=== PATIENT | female | born 1980 | race Caucasian/White ===

== ENCOUNTER 2019-12-03 17:08 | Emergency (ER) | payer OTHER, SELFPAY ==
--- NOTE | ~2019-12-03 | XR_ITS ---
EXAMINATION: XR lumbar spine 2-3V DATE: 12/03/2019 17:41 INDICATION: Low back and tailbone pain post fall from horse TECHNIQUE: Anteroposterior and lateral views of the lumbar spine, and cone-down lateral view of the l umbosacral junction were obtained. COMPARISON: None. FINDINGS: Straightening of the normal lumbar lordosis. No spondylolisthesis. Vertebral body heights are normal. Small Schmorl's node along the superior endplates of L2 and L3. Mild disc height loss at L1-L2 throu gh L4-L5. L5 is partially sacralized on the left. Sacral arches are intact. No fractures identified. Sacroiliac joints are normal. IMPRESSION: 1. Mild lumbar spondylosis. No acute osseous abnormality. Reviewed, dictated and finalized at location A.
--- NOTE | ~2019-12-03 | CT_ITS ---
EXAMINATION: CT brain wo con DATE: 12/03/2019 17:31 INDICATION: Head injury post fall from horse with broken helmet. TECHNIQUE: Computed tomography (CT) of the head was performed without intravenous contrast. Sagittal and coronal reconstructions were performed. The mA was adjusted according to patient size. Iterative reconstruction technique was employed. The dose-length product was 605.33 mGy-cm. COMPARISON: None FINDINGS: No fracture. No acute intracranial hemorrhage, acute infarction or abnormal extra axial fluid collect ion. Ventricles are normal and symmetric. No mass/mass effect. The orbits, paranasal sinuses and mast oid air cells are normal. IMPRESSION: 1. Normal head CT. No fracture or acute intracranial process. Reviewed, dictated and finalized at location A.
[2019-12-03 17:10] VITALS: BP 168/92; PULSE 106; RESP 20; TEMP 36.9; O2SAT 100
[2019-12-03] MEDS: ACETAMINOPHEN 325 MG TABLET 650 MG PO (17:26)
--- NOTE | 2019-12-03 18:10 | ED.GENADULT ---
HPI - General Adult General Chief complaint: Head Injury <TAD Caban Last Filed: 12/03/19 18:13> Stated complaint: fell from a horse <TAD Caban Last Filed: 12/03/19 18:13> Time Seen by Provider: 12/03/19 17:16 <TAD Caban Last Filed: 12/03/19 18:13> Source: patient <TAD Caban Last Filed: 12/03/19 18:13> Mode of arrival: ambulatory <TAD Caban Last Filed: 12/03/19 18:13> Limitations: no limitations <TAD Caban Last Filed: 12/03/19 18:13> History of Present Illness HPI narrative: Patient is a 39-year-old female who presents after being thrown off a horse landing on her head noting that she cracked the helmet that she was wearing denies loss of consciousness notes that she has had some brief confusion with headache lightheadedness dizziness and nausea patient denies neck pain but notes that she also is experiencing some low back pain patient on arrival per private vehicle is in the room in no distress patient has not taken anything for her symptoms <TAD Caban Last Filed: 12/03/19 18:13> Related Data Home medications: Home Medications Medication Instructions Recorded Confirmed No Home Medications 12/03/19 12/03/19 <TAD Caban Last Filed: 12/03/19 18:13> Allergies/adverse reactions: Allergies Allergy/AdvReac Type Severity Reaction Status Date / Time doxycycline Allergy Unknown Unknown Verified 12/03/19 17:18 Iodinated Contrast Media Allergy Unknown Unknown Verified 12/03/19 17:18 Contrast Media Allergy Unknown Unknown Uncoded 12/03/19 17:18 <TAD Caban Last Filed: 12/03/19 18:13> Review of Systems Review of Systems: All systems reviewed & are unremarkable except as noted in HPI and below <TAD Caban Last Filed: 12/03/19 18:13> PMFSH Family History Family History: Family History (Updated 11/02/14 @ 09:52 by DOCTOR UNKNOWN) Other Family history of cardiovascular disease Family history of mental disorder Family history of osteoporosis <Puneet Easton PA-C - Last Filed: 12/03/19 18:13> Social History Social History: Social History Smoking status: Never smoker Alcohol intake: current <Puneet Easton PA-C - Last Filed: 12/03/19 18:13> Exam Narrative: Exam Narrative: GENERAL: Well-appearing, well-nourished, and in no acute distress. HEAD: Normocephalic, atraumatic. EYES: PERRLA and EOMI. ENT: Nares clear, no rhinorrhea or epistaxis. Mucous membranes moist. Oropharynx without tonsillar hypertrophy exudate or other lesions. NECK: Supple. No adenopathy or masses. CHEST: Clear to auscultation. No respiratory distress. No wheezes rales or rhonchi HEART: Regular rate and rhythm. No murmur heard. EXTREMITIES: Normal range of motion. No edema. No cervical thoracic tenderness. Patient notes lumbar tenderness to palpation midline paraspinal no deformities noted SKIN: Warm, dry, no rash. NEURO: No focal deficits. Alert and oriented x3. Cranial nerves II through XII grossly intact. Normal speech and gait PSYCH: Normal mood and affect. 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 Mujica is here because she fell off of her horse today. The back of her helmet broke. And she hurt her low back. She also fell 4 days ago with last injury. 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 She has some confusion with the head injury, and some right sciatica from the low back pain. She understands to have quiet activity for a couple days, and to postpone getting back
[2019-12-03 18:31] VITALS: TEMP 36.9
== END 2019-12-03 18:32 | disposition home or self-care (01) ==
PROVIDERS: Emergency Provider Emergency Medicine
DX: S09.90XA Unspecified injury of head, initial encounter (principal); S39.92XA Unspecified injury of lower back, initial encounter; V80.010A Animal-rider injured by fall from or being thrown from horse in noncollision accident, initial encounter; M47.816 Spondylosis without myelopathy or radiculopathy, lumbar region
CPT/HCPCS: 70450; 72100; 99284; A9270

== ENCOUNTER 2021-07-02 15:25 | Emergency (ER) | payer SELFPAY ==
--- NOTE | ~2021-07-02 | XR_ITS ---
EXAMINATION: XR knee RT 3V DATE: 07/02/2021 16:31 INDICATION: Right knee injury and pain. TECHNIQUE: 5 views of right knee were obtained. COMPARISON: None. FINDINGS: Bone alignment is normal. No fracture. There is mild tricompartmental osteoarthritis. There is a large knee joint effusion. There is a 6 mm loose body in the anterior intercondylar notch. IMPRESSION: 1. Mild right knee osteoarthritis. 2. Large knee joint effusion with loose body. Reviewed, dictated and finalized at location A. 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
[2021-07-02 16:00] VITALS: BP 172/112; PULSE 95; RESP 18; TEMP 36.4; O2SAT 100
--- NOTE | 2021-07-02 20:10 | ED.GENADULT ---
HPI - General Adult General Chief complaint: Extremity Injury, Lower Stated complaint: right knee injury Time Seen by Provider: 07/02/21 19:35 Source: patient Mode of arrival: ambulatory Limitations: no limitations History of Present Illness HPI narrative: Patient is a 40-year-old female with chief complaint of severe pain and swelling to the right knee that began after her dog ran into the medial aspect of her knee causing it to twist. Patient reports that she feels as if a pop out of place and popped back. She reports that it is extremely painful to bear weight. She reports the pain is to the entire anterior aspect of the knee, but feels deep and not superficial. Patient denies any other injuries Related Data Allergies Allergy/AdvReac Type Severity Reaction Status Date / Time doxycycline Allergy Unknown Unknown Verified 12/03/19 17:18 Iodinated Contrast Media Allergy Unknown Unknown Verified 12/03/19 17:18 Contrast Media Allergy Unknown Unknown Uncoded 12/03/19 17:18 Review of Systems Review of Systems: CONSTITUTIONAL: Denies fever, chills, or sweats. EYES: Denies visual changes, redness, or discharge. ENT: Denies rhinorrhea, congestion, sore throat, or otalgia. CARDIOVASCULAR: Denies chest pain, palpitations, or edema. RESPIRATORY: Denies cough or dyspnea. GASTROINTESTINAL: Denies abdominal pain, nausea, vomiting, or diarrhea. GENITOURINARY: Denies dysuria or hematuria. SKIN: Denies rash or itching. MUSCULOSKELETAL: Reports right knee pain denies back pain, joint pain, or myalgia. NEUROLOGIC: Denies headache, numbness, dizziness, or weakness. PSYCHIATRIC: Denies anxiety or depression. [facility] Family History Family History (Updated 11/02/14 @ 09:52 by DOCTOR UNKNOWN) Other Family history of cardiovascular disease Family history of mental disorder Family history of osteoporosis Social History Social History Smoking status: Never smoker Alcohol intake: current Exam Narrative: GENERAL: Well-appearing, well-nourished, and in no acute distress. HEAD: Normocephalic, atraumatic. EYES: PERRLA and EOMI. NECK: Supple. No adenopathy or masses. ROM intact CHEST: Clear to auscultation. No respiratory distress. No wheezes rales or rhonchi HEART: Regular rate and rhythm. No murmur heard. Normal peripheral pulses. EXTREMITIES: moderate swelling to right knee with decreased range of motion and pain with any attempt at ROM limits exam. cap refill intact distally w/o pain distally. She does verbalize radiating pain down leg. SKIN: Warm, dry, no rash. NEURO: No focal deficits. Alert and oriented x3. PSYCH: Normal mood and affect. Course Vital Signs Vital signs: Vital Signs Temperature 97.5 F L 07/02/21 16:00 Pulse Rate 95 07/02/21 16:00 Respiratory Rate 18 07/02/21 16:00 Blood Pressure 172/112 H 07/02/21 16:00 Pulse Oximetry 100 07/02/21 16:00 Temperature 97.5 F L 07/02/21 16:00 Pulse Rate 95 07/02/21 16:00 Respiratory Rate 18 07/02/21 16:00 Blood Pressure 172/112 H 07/02/21 16:00 Pulse Oximetry 100 07/02/21 16:00 Medical Decision Making MDM Narrative Medical decision making narrative: X-rays are negative for fracture but large sized effusion noted. Patient will be placed in knee immobilizer and given crutches as I suspect tendon or ligamentous injury. Patient will be prescribed Van as she cannot take NSAIDs due to history of bleeding ulcers. Patient has been instructed to follow-up with clinical account specialist for further evaluation and management of her injuries. Patient instructed to return to emergency department she has any emergent symptoms. Differential Diagnosis Differential Diagnosis: Fracture, sprain, strain Vital Signs Vital Signs: Vital Signs Temperature 97.5 F L 07/02/21 16:00 Pulse Rate 95 07/02/21 16:00 Respiratory Rate 18 07/02/21 16:00 Blood Pressure 172/112 H 07/02/21 16:00 Pulse Oximetry
[2021-07-02] MEDS: HYDROcodone/acetaminophen (*CRX) 5-325 MG TABLET 1 TAB PO (20:19)
[2021-07-02 20:58] VITALS: BP 160/97; PULSE 83; RESP 16; O2SAT 99
== END 2021-07-02 21:05 | disposition home or self-care (01) ==
LOC: ANHED 20:45
PROVIDERS: Emergency Provider Emergency Medicine; PCP Internal Medicine
DX: S83.91XA Sprain of unspecified site of right knee, initial encounter (principal); M25.461 Effusion, right knee; M17.11 Unilateral primary osteoarthritis, right knee; W54.1XXA Struck by dog, initial encounter
CPT/HCPCS: 73562; 99283; A9270

== ENCOUNTER 2021-08-24 07:30 | Outpatient (CLI) | payer OTHER, SELFPAY ==
--- NOTE | ~2021-08-24 | MR_ITS ---
EXAMINATION: MR knee RT wo con DATE: 08/24/2021 08:22 INDICATION: Recurrent right patellar dislocation. TECHNIQUE: Magnetic resonance imaging (MRI) of the right knee was performed without intravenous contr ast. Sequences included axial PD-weighted FS FSE, coronal PD-weighted FSE and PD-weighted FS FSE, sag ittal PD-weighted FSE, and sagittal T2-weighted FS FSE. COMPARISON: Right knee radiographs 07/02/2021 FINDINGS: Medial compartment: There is an undersurface horizontal tear of posterior horn of medial meniscus. There is cartilage evelin face irregularity of femoral condyle. There is shallow partial-thickness cartilage loss of medial rim of tibial condyle with mild subchondral edema-like marrow signal intensity. There are marginal osteo phytes. Lateral compartment: Lateral meniscus is normal. There is shallow partial-thickness cartilage loss of femoral condyle invo lving the central articular surface. Tibial cartilage is normal. There are marginal osteophytes. Patellofemoral compartment: There is full-thickness cartilage loss of patellar medial facet. There is deep partial thickness cart ilage loss of patellar median ridge and lateral facet. There is partial-thickness cartilage loss of t rochlea. Trochlear dysplasia is noted. Osteophytes are noted. Ligaments and tendons: The anterior cruciate ligament is normal. The posterior cruciate ligament is normal. There are change s of prior sprains of medial collateral ligament and tibial collateral ligament characterized by thic kening and increased signal intensity. There is a tear of the medial retinaculum. There is mild horton lar tendinopathy. Fluid: There is a small knee joint effusion. There is a small Rashid's cyst. There is mild prepatellar and arndt perficial infrapatellar bursitis. Osseous/other: There is an old impaction fracture deformity of lateral aspect of lateral femoral condyle. IMPRESSION: 1. Severe chondrosis of patellofemoral compartment and mild chondrosis of medial and lateral compartm ents. 2. Tear of medial meniscus. 3. 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 4. Small knee joint effusion. 5. Small Rashid's cyst. Reviewed, dictated and finalized at location B. 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 Severe chondrosis of patellofemoral compartment and mild chondrosis of media l and lateral compartments. 2. Tear of medial meniscus. 3. 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 4. Small knee joint effusion. 5. Small Rashid's cyst.
== END 2021-08-24 07:31 ==
PROVIDERS: Visit Provider Orthopaedic Surgery
DX: M22.01 Recurrent dislocation of patella, right knee (principal); M71.21 Synovial cyst of popliteal space [Baker], right knee; M25.461 Effusion, right knee; S83.241A Other tear of medial meniscus, current injury, right knee, initial encounter; X58.XXXA Exposure to other specified factors, initial encounter
CPT/HCPCS: 73721

== ENCOUNTER 2022-11-27 17:34 | Emergency (ER) | payer OTHER, SELFPAY ==
--- NOTE | ~2022-11-27 | CT_ITS ---
EXAMINATION: CT diagnostic chest wo con DATE: 11/27/2022 19:59 INDICATION: Right-sided chest pain TECHNIQUE: Computed tomography (CT) of the chest was performed without intravenous contrast. The dose -length product (DLP) was 669.34 mGy-cm. Automated exposure control and iterative reconstruction tech Pivotshareque were employed. COMPARISON: None FINDINGS: There is a 2.8 cm nodule of the right thyroid lobe. The lungs are free of acute opacities. There is a prominent epicardial fat pad abutting the right heart border accounting for the chest radi ographic finding in question. No pleural effusion or pneumothorax. No pathologically enlarged thoraci c lymph nodes are identified. The heart size is normal. The liver is diffusely low in attenuation whe n compared with the spleen, consistent with hepatic steatosis. IMPRESSION: 1. No CT correlate for the patient's symptoms. 2. Prominent fat pad abutting the right heart border accounting for the chest radiographic finding in question. Reviewed, dictated and finalized at location F. IMPRESSION: 1. No CT correlate for the patient's symptoms. 2. Prominent fat pad abutting the right heart border accounting for the chest r adiographic finding in question.
--- NOTE | ~2022-11-27 | XR_ITS ---
EXAMINATION: XR chest 2V DATE: 11/27/2022 18:01 INDICATION: Chest pain TECHNIQUE: PA and lateral views of the chest are obtained. COMPARISON: None available FINDINGS: There is an opacity projecting in the right middle lobe. No pleural effusion or pneumothora x. The cardiomediastinal silhouette is normal. There is mild thoracic spondylosis. IMPRESSION: 1. Right middle lobe opacity which could reflect pneumonia, atelectasis, or less likely a mass. Furth er evaluation with CT of the chest is recommended. Reviewed, dictated and finalized at location F. IMPRESSION: 1. Right middle lobe opacity which could reflect pneumonia, atelectasis, or les s likely a mass. Further evaluation with CT of the chest is recommended.
--- NOTE | 2022-11-27 17:35 | ECG_ITS ---
Measurements Intervals [place] Rate: 114 P: 62 VT: 175 QRS: 0 QRSD: 84 T: 59 QT: 310 QTc: 427 Interpretive Statements SINUS TACHYCARDIA BASELINE ARTIFACT VOLTAGE CRITERIA FOR LVH NONSPECIFIC ST & T-WAVE ABNORMALITY ABNORMAL ECG NO PREVIOUS ECG AVAILABLE FOR COMPARISON Electronically Signed On 11-28-2022 16:33:08 CDT by Evin Gardner M.D.
[2022-11-27 17:41] VITALS: BP 185/106; PULSE 116; RESP 18; TEMP 36.6; O2SAT 97
[2022-11-27 18:24] LABS: Basophils Percent Auto 0.4 % (0.2-1.2); Eosinophils Absolute Auto 0.2 K/mm3 (0-0.3); Eosinophils Percent Auto 1.9 % (0-4.4); Hematocrit 42.8 % (37.0-47.0); Hemoglobin 13.8 g/dL (12.0-15.0); Immature Granulocyte Absolute 0.02 K/mm3 (0.00-0.031); Immature Granulocyte Percent A 0.2 % (0-0.5); Lymphocytes Absolute Auto 2.53 K/mm3 (0.9-3.2); Lymphocytes Percent Auto 25.7 % (18.3-44.2); Mean Corpuscular HGB Conc 32.2 g/dl (32-36); Mean Corpuscular Hemoglobin 28.3 pg (26-34); Mean Corpuscular Volume 87.7 fl (80-100); Mean Platelet Volume 12.1 fl (7.4-10.4); Monocytes Absolute Auto 0.6 K/mm3 (0.1-0.6); Monocytes Percent Auto 6.2 % (2.6-8.5); Neutrophils Absolute Auto 6.5 K/mm3 (1.3-6.7); Neutrophils Percent Auto 65.6 % (45.5-73.1); Platelet Count Result 172 k/mm3 (150-375); Red Blood Count 4.88 M/mm3 (4.2-5.4); Red Cell Distribution Width 13.6 % (11.5-14.5); White Blood Count 9.9 K/mm3 (4.5-10.0)
[2022-11-27 18:34] LABS: INR 0.9
[2022-11-27 18:35] LABS: Partial Thromboplastin Time 26.6 SECONDS (22.3-36.8)
[2022-11-27 18:38] LABS: Alanine Aminotransferase 40 U/L (6-35); Albumin Level 4.3 g/dL (3.5-5.1); Alkaline Phosphatase 69 U/L (38-126); Anion Gap 7 mmol/L (8-16); Aspartate Amino Transferase 31 U/L (14-36); Bilirubin,Total 0.5 mg/dL (0.2-1.3); Blood Urea Nitrogen 11 mg/dL (7-17); Calcium 9.6 mg/dL (8.4-10.2); Carbon Dioxide 26 mmol/L (22-30); Chloride 103 mmol/L (98-107); Estimated CRCL calculation 132 ml/min; Estimated Glomerular Filt Rate > 60; Glucose 237 mg/dL (65-110); Lipase 72 U/L (23-300); Potassium 3.7 mmol/L (3.4-5.0); Sodium 136 mmol/L (137-145)
--- NOTE | 2022-11-27 18:48 | ED.ARRPALP ---
HPI - Arrhythmia/Palpitations General Chief Complaint: Arrhythmia/Palpitations Stated Complaint: pain with breathing, palpitations Time Seen by Provider: 11/27/22 18:47 Source: patient Mode of arrival: ambulatory Limitations: no limitations History of Present Illness HPI narrative: Patient is a 42-year-old female presenting to the emergency department for evaluation of chest pain and cough. Patient states that she has had chest pain and cough over the past 2 weeks. Patient reports pressure over the lower part of the right chest with radiation to the middle back. Denies lightheaded, dizziness. She reports cough without hemoptysis. She denies fever or chills. Patient denies leg swelling or calf pain. No history of coagulopathy. She does not smoke. Patient does report intermittent palpitations. No significant worsening with exertional activity. No shortness of breath. No wheezing. Pain is described as a mild aching sensation in the right lower chest. Related Data Allergies Allergy/AdvReac Type Severity Reaction Status Date / Time doxycycline Allergy Unknown Unknown Verified 12/03/19 17:18 Iodinated Contrast Media Allergy Unknown Unknown Verified 12/03/19 17:18 Contrast Media Allergy Unknown Unknown Uncoded 12/03/19 17:18 Review of Systems Review of Systems: CONSTITUTIONAL: Denies fever, chills, or sweats. EYES: Denies visual changes, redness, or discharge. ENT: Denies rhinorrhea, congestion, sore throat, or otalgia. CARDIOVASCULAR: Reports right lower chest pain, palpitations, denies edema RESPIRATORY: Reports cough without shortness of breath GASTROINTESTINAL: Denies abdominal pain, nausea, vomiting, or diarrhea. GENITOURINARY: Denies dysuria or hematuria. SKIN: Denies rash or itching. MUSCULOSKELETAL: Denies back pain, joint pain, or myalgia. NEUROLOGIC: Denies headache, numbness, or weakness. PSYCHIATRIC: Patient with history of whitecoat syndrome [facility] Family History Family History Other Family history of cardiovascular disease Family history of mental disorder Family history of osteoporosis Social History Social History Smoking status: Never smoker Alcohol intake: current Exam Narrative: GENERAL: Awake, alert, conversant HEAD: Normocephalic, atraumatic. EYES: PERRLA and EOMI. ENT: Nares clear, no rhinorrhea or epistaxis. Mucous membranes moist. NECK: Supple. CHEST: No respiratory distress, breathing even and non labored, lungs are clear to auscultation bilaterally without wheezing, rhonchi, rales HEART: Regular rate, sinus rhythm ABDOMEN:Non distended, non tender EXTREMITIES: Normal range of motion. No edema. SKIN: Warm, dry, no rash. NEURO:No focal deficits. Alert and oriented x3 Course Vital Signs Vital signs: Vital Signs Temperature 36.6 C 11/27/22 17:41 Pulse Rate 116 H 11/27/22 17:41 Respiratory Rate 18 11/27/22 17:41 Blood Pressure 185/106 H 11/27/22 17:41 Pulse Oximetry 97 11/27/22 17:41 Oxygen Delivery Room Air 11/27/22 17:41 Temperature 36.6 C 11/27/22 17:41 Pulse Rate 116 H 11/27/22 17:41 Respiratory Rate 18 11/27/22 17:41 Blood Pressure 185/106 H 11/27/22 17:41 Pulse Oximetry 97 11/27/22 17:41 Oxygen Delivery Room Air 11/27/22 17:41 MDM - Arrhythmia/Palpitations MDM Narrative Medical decision making narrative: Medical decision making narrative: -Presentation: Patient presenting for evaluation of chest pain and palpitations. At the time of assessment, patient is mildly tachycardic 1 teens but reports significant whitecoat syndrome and anxiety. Blood pressure is improved at the time of my assessment. No chest wall pain. Patient has had cough. -DDX includes but is not limited to: PE, pneumonia, pleurisy, asthma exacerbation -Co-morbidities complicating care: Obesity -Social determinants of health: None -External Chart
[2022-11-27 18:51] LABS: Troponin I < 0.012 ng/mL (0.000-0.034)
[2022-11-27 19:19] LABS: D Dimer 0.42 ug/mL (<0.48)
[2022-11-27] MEDS: KETOROLAC 15 MG/ML VIAL (*BKC) IV PUSH (20:06)
== END 2022-11-27 21:17 | disposition home or self-care (01) ==
PROVIDERS: Emergency Medicine; Emergency Provider Emergency Medicine
DX: R00.2 Palpitations (principal); R07.9 Chest pain, unspecified; R00.0 Tachycardia, unspecified; R94.31 Abnormal electrocardiogram [ECG] [EKG]; E04.1 Nontoxic single thyroid nodule
CPT/HCPCS: 36415; 71046; 71250; 80053; 83690; 84484; 85025; 85380; 85610; 85730; 93005; 96374; 99284; J1885

== ENCOUNTER 2023-11-05 07:19 | Outpatient (CLI) | payer OTHER, SELFPAY ==
[2023-11-05 08:11] LABS: Basophils Percent Auto 0.5 % (0.2-1.2); Eosinophils Absolute Auto 0.2 K/mm3 (0-0.3); Eosinophils Percent Auto 2.7 % (0-4.4); Hematocrit 42.1 % (37.0-47.0); Hemoglobin 13.6 g/dL (12.0-15.0); Immature Granulocyte Absolute 0.02 K/mm3 (0.00-0.031); Immature Granulocyte Percent A 0.3 % (0-0.5); Lymphocytes Absolute Auto 1.61 K/mm3 (0.9-3.2); Lymphocytes Percent Auto 24.5 % (18.3-44.2); Mean Corpuscular HGB Conc 32.3 g/dl (32-36); Mean Corpuscular Hemoglobin 27.7 pg (26-34); Mean Corpuscular Volume 85.7 fl (80-100); Mean Platelet Volume 11.8 fl (7.4-10.4); Monocytes Absolute Auto 0.4 K/mm3 (0.1-0.6); Monocytes Percent Auto 6.2 % (2.6-8.5); Neutrophils Absolute Auto 4.3 K/mm3 (1.3-6.7); Neutrophils Percent Auto 65.8 % (45.5-73.1); Platelet Count Result 194 k/mm3 (150-375); Red Blood Count 4.91 M/mm3 (4.2-5.4); Red Cell Distribution Width 13.8 % (11.5-14.5); White Blood Count 6.6 K/mm3 (4.5-10.0)
[2023-11-05 09:01] LABS: Alanine Aminotransferase 26 U/L (6-35); Alkaline Phosphatase 61 U/L (38-126); Anion Gap 5 mmol/L (8-16); Aspartate Amino Transferase 27 U/L (14-36); Bilirubin,Total 0.7 mg/dL (0.2-1.3); Blood Urea Nitrogen 12 mg/dL (7-17); Calcium 9.1 mg/dL (8.4-10.2); Carbon Dioxide 25 mmol/L (22-30); Chloride 107 mmol/L (98-107); Estimated Glomerular Filt Rate > 60; Glucose 147 mg/dL (65-110); Potassium 3.7 mmol/L (3.4-5.0); Sodium 137 mmol/L (137-145)
[2023-11-08 15:22] LABS: Vitamin D 1,25 (OH)2 Total 51 pg/mL (18-72); Vitamin D2 1,25 (OH)2 <8 pg/mL; Vitamin D3 1,25 (OH)2 51 pg/mL
== END 2023-11-05 07:20 | disposition home or self-care (01) ==
DX: R11.2 Nausea with vomiting, unspecified (principal)
CPT/HCPCS: 36415; 80053; 82652; 85025

== ENCOUNTER 2023-12-23 08:05 | Outpatient (CLI) | payer OTHER, SELFPAY ==
--- NOTE | ~2023-12-23 | XR_ITS ---
Left Hand Technique: PA, oblique, and lateral views were obtained. Clinical History: Radial styloid tenosynovitis Findings: No acute fracture or dislocation is seen. Osseous alignment is anatomic. Joint spaces are p reserved. Soft tissues are unremarkable. Impression: Unremarkable left hand. Reviewed, dictated and finalized at location . Impression: Unremarkable left hand.
== END 2023-12-23 08:06 | disposition home or self-care (01) ==
PROVIDERS: Visit Provider Plastic Surgery
DX: M65.4 Radial styloid tenosynovitis [de Quervain] (principal)
CPT/HCPCS: 73130

== ENCOUNTER 2023-12-28 15:28 | Outpatient (CLI) | payer OTHER, SELFPAY ==
--- NOTE | ~2023-12-28 | XR_ITS ---
EXAM: XR foot LT min 3V DATE: 12/28/2023 15:47 HISTORY: ARTHRALGIA, LEFT MIDFOOT . COMPARISON: None available. FINDINGS: Normal mineralization. No fracture or dislocation. No lytic or blastic lesion. Plantar ent hesopathy. Degenerative changes at the tibiotalar articulation, multiple midfoot joints, and the firs t MTP joint. Fragmented lateral first digit sesamoid arthritic changes. No erosion or periosteal jung ge. Soft tissues within normal limits. IMPRESSION: Moderate polyarticular osteoarthritis involving the ankle, midfoot and first MTP joint. S evere arthritis of the first digit lateral sesamoid. Reviewed, dictated and finalized at location K. IMPRESSION: Moderate polyarticular osteoarthritis involving the ankle, midfoot and first MTP joint. Severe arthritis of the first digit lateral sesamoid.
== END 2023-12-28 15:29 | disposition home or self-care (01) ==
PROVIDERS: Visit Provider Podiatrist Foot & Ankle Surgery
DX: M19.072 Primary osteoarthritis, left ankle and foot (principal)
CPT/HCPCS: 73630

== ENCOUNTER 2024-04-11 13:55 | Outpatient (CLI) | payer OTHER, SELFPAY ==
--- NOTE | ~2024-04-11 | US_ITS ---
EXAMINATION: US thyroid DATE: 04/11/2024 14:19 INDICATION: Nontoxic single thyroid nodule. TECHNIQUE: Multiple ultrasound images of the thyroid were obtained. COMPARISON: None. FINDINGS: The right thyroid lobe measures 3.4 x 2.9 x 6.1 cm. The left thyroid lobe measures 1.7 x 1.5 x 4.1 c m. In the right thyroid lobe, there is a 3.4 cm predominantly solid, isoechoic, wider than tall nodu le with smooth margin without echogenic foci (TI-RADS TR3). IMPRESSION: 1. Right thyroid nodule. Ultrasound-guided fine needle aspiration is recommended. Reviewed, dictated and finalized at location A. IMPRESSION: 1. Right thyroid nodule. Ultrasound-guided fine needle aspiration is recommende dStanton
== END 2024-04-11 13:56 | disposition home or self-care (01) ==
PROVIDERS: PCP Otolaryngology; Visit Provider Otolaryngology
DX: E04.1 Nontoxic single thyroid nodule (principal)
CPT/HCPCS: 76536

== ENCOUNTER 2024-05-26 12:32 | Outpatient (CLI) | payer OTHER, SELFPAY ==
--- NOTE | ~2024-05-26 | US_ITS ---
EXAMINATION: US FNA w image guidance DATE: 05/26/2024 13:46 INDICATION: Nontoxic single thyroid nodule. TECHNIQUE: The procedure and its benefits and risks were discussed with the patient. Risks specifically discusse d included bleeding. The patient verbalized understanding of the risks and agreed to proceed. The nec k was prepped and draped in the usual sterile manner. 1% lidocaine was used for local anesthesia. 6 passes were made with a 25G needle into the lesion under ultrasound guidance. There were no immedia te complications. FINDINGS: Grayscale ultrasound images demonstrate needles advanced into a 3.7 cm nodule in right thyroid lobe f or biopsy. IMPRESSION: 1. Ultrasound-guided fine needle aspiration of a right thyroid nodule. Reviewed, dictated and finalized at location A.
== END 2024-05-26 12:33 | disposition home or self-care (01) ==
PROVIDERS: PCP Otolaryngology; Visit Provider Otolaryngology
DX: E04.1 Nontoxic single thyroid nodule (principal)
CPT/HCPCS: 10005; 88172; 88173; 88177; 88305

== ENCOUNTER 2024-05-30 14:23 | Outpatient (CLI) | payer OTHER, SELFPAY ==
--- NOTE | ~2024-05-30 | CT_ITS ---
EXAMINATION: CT soft tissue neck wo con DATE: 05/30/2024 14:53 INDICATION: Oral lesion. TECHNIQUE: Computed tomography (CT) of the neck was performed without intravenous contrast. Automated exposure control and iterative reconstruction technique were employed. The dose-length product was 6 13.15 mGy-cm. COMPARISON: Ultrasound 05/26/2024. FINDINGS: The major salivary glands are normal. There is no sialolith. There is a 2.5 cm nodule in ri ght thyroid lobe status post benign biopsy on 05/26/24. There are no pathologically enlarged lymph no cordelia. There is mild mucosal thickening in the paranasal sinuses. The mastoid air cells are normal. The re is mild cervical spondylosis. IMPRESSION: 1. No oral lesion identified. Reviewed, dictated and finalized at location A.
== END 2024-05-30 14:24 | disposition home or self-care (01) ==
LOC: ANHIMG 14:28
DX: K13.70 Unspecified lesions of oral mucosa (principal)
CPT/HCPCS: 70490

== ENCOUNTER 2025-01-25 13:44 | Emergency (ER) | payer OTHER, SELFPAY ==
--- NOTE | ~2025-01-25 | XR_ITS ---
XR chest 2V 01/25/2025 14:09 Indication: Cough. History of asthma. Procedure: 2 view chest Comparison: 12/17/2022 Findings: Heart size normal. Patchy left infiltrates may represent atelectasis or developing pneumoni a. Prominent right cardiophrenic angle fat pad. No significant effusion, edema or pneumothorax. Impression: 1: Patchy left infiltrates may represent atelectasis or developing pneumonia. Reviewed, dictated and finalized at location B. Impression: 1: Patchy left infiltrates may represent atelectasis or developing pneumonia.
--- NOTE | 2025-01-25 13:46 | ED_ITS ---
HPI - URI/Sore Throat General Chief Complaint: Upper Respiratory Infection Stated Complaint: cough Time Seen by Provider: 01/25/25 13:45 Source: patient Mode of arrival: ambulatory Limitations: no limitations History of Present Illness HPI Narrative: Micheline is a 44-year-old female patient presenting to the clinic today with complaints of a cough and shortness of breath x3 weeks. She reports cough is nonproductive. No fevers, chills, body aches. Denies any chest pain. History of asthma. Has been using her albuterol inhaler with minimal relief. Has not taken any cough medicines as she has had a bad side effect in the past. She is a nonsmoker. Related Data Home Medications ?Medication ?Instructions ?Recorded ?Confirmed ?Last Taken ?Type albuterol 90 mcg/actuation aerosol mcg inhalation 01/25/25 Unknown History inhaler Allergies Allergy/AdvReac Type Severity Reaction Status Date / Time doxycycline Allergy Unknown Unknown Verified 01/25/25 13:55 Iodinated Contrast Media Allergy Unknown Unknown Verified 01/25/25 13:55 Review of Systems Review of Systems: Pertinent positives per HPI. Patient denies any fever, chills, rash, headache, visual changes, dizziness, cough, shortness of breath, chest pain, palpitations, nausea, vomiting, diarrhea, constipation, abdominal pain, or any urinary issues. PMFSH Family History Family History Mother Cancer Father Diabetes mellitus Grandparent Cancer Diabetes mellitus Grandparent Diabetes mellitus Other Family history of cardiovascular disease Family history of mental disorder Family history of osteoporosis Social History Social History Smoking status: Never smoker Alcohol intake: current Substance use: never Substance use type: does not use Comments At the time of my signature, I reviewed and agree with the nursing past medical, surgical, social, and family history. There is no relevant family history pertinent to the patient complaint. Exam Narrative: General: Well-developed, well nourished, in no apparent distress Head: Normocephalic, atraumatic Eyes: Pupils equally round and reactive to light bilaterally, EOM intact, sclera and conjunctive clear, no discharge, lids normal Ears: TMs intact and clear, ear canals clear, no drainage, grossly hearing normal. Nose: Nares patent, no discharge, no inflammation, no sinus tenderness. Mouth: Oral pharynx without lesions or masses, good dentition, MMM. Neck: Supple, trachea midline, no enlargement of anterior or posterior cervical nodes, no thyroid masses or goiter palpable. Cardio: Regular rate and rhythm, s1 and s2 normal, no murmur appreciated. Resp: Lung sounds diminished in the bases otherwise clear, no rhonchi, rales, wheezing or rubs Course Course Emergency Course: Portions of this record may have been created with voice recognition software. Level of Care: Express Care Visit Vital Signs Vital signs: Vital Signs Temperature 36.5 C 01/25/25 13:50 Pulse Rate 90 01/25/25 13:50 Respiratory Rate 16 01/25/25 13:50 Blood Pressure 190/109 H 01/25/25 13:50 Pulse Oximetry 99 01/25/25 13:50 Oxygen Delivery Room Air 01/25/25 13:50 Temperature 36.5 C 01/25/25 13:50 Pulse Rate 90 01/25/25 13:50 Respiratory Rate 16 01/25/25 13:50 Blood Pressure 190/109 H 01/25/25 13:50 Pulse Oximetry 99 01/25/25 13:50 Oxygen Delivery Room Air 01/25/25 13:50 Vital signs reviewed MDM - URI/Sore Throat MDM Narrative Medical decision making narrative: At the time of visit patient is resting comfortably on the exam table. Patient appears to be nontoxic. Diagnostics: Chest x-ray shows possible developing pneumonia versus atelectasis to the left lung Plan: I suspect patient has developing pneumonia. Will cover for community- acquired pneumonia and place her on azithromycin and Augmentin. Supportive measures were discussed with the patient and they voiced understanding discharge instructions and agrees to treatment plan. Return precautions reviewed Differential Diagnosis Differential diagnosis: Likely upper respiratory infection, otitis media, sinusitis, viral infection, bronchitis, influenza, pharyngitis and other (COVID, acute dyspnea, asthma, pneumonia, congestive heart failure, COPD) Imaging Data Radiologist's impression: ITS Impressions Chest X-Ray 01/25/25 14:10 Impression: 1: Patchy left infiltrates may represent atelectasis or developing pneumonia. Discharge Plan Discharge Clinical Impression: Pneumonia Qualifiers: Pneumonia type: due to unspecified organism Laterality: left Lung location: unspecified part of lung Qualified Code(s): J18.9 - Pneumonia, unspecified organism Patient Disposition: Home Condition: Stable Instructions: Antibiotic Form, Pneumonia (ED) Additional Instructions: X-ray shows patchy left infiltrates that may represent atelectasis or developing pneumonia. Take prescription medications only as prescribed-azithromycin and Augmentin May continue using albuterol inhaler as needed for cough, shortness of breath, or wheezing. Increase fluids and stay well hydrated Tylenol/motrin for pain/fever Flonase and OTC antihistamines as directed Vicks vapor rub to open sinuses Sinus rinses for congestion Cepacol spray, cough drops, throat lozenges, warm tea with honey/lemon, gargle salt water to soothe throat BRAT diet for diarrhea Clear liquids x 24 hours then advance as tolerated for nausea/vomiting Go to the ED if you develop a worsening in your condition- high fever not controlled by Tylenol or Motrin, dehydration, weakness, lethargy, shortness of breath, or chest pain. Follow up with your PCP in 3-5 days if symptoms persist. Patient Language: Kinyarwanda Prescriptions: New azithromycin 250 mg tablet See Rx Instructions .ROUTE .COMPLEX Qty: 6 0RF Rx Instructions: For 250 mg dose pack: take 500 mg today (day 1), then 250 mg for 4 days (days 2-5) amoxicillin-pot clavulanate 875-125 mg tablet 1 tablet PO Q12H 7 Days Qty: 14 0RF No Action albuterol 90 mcg/actuation aerosol inhalation Follow-up/Referrals: UNKNOWN,DOCTOR [Non-Staff] - Time of Disposition: 14:15 Quality NIHSS Nursing Documentation ED NIHSS nursing documentation: reviewed/agree
[2025-01-25 13:50] VITALS: BP 190/109; PULSE 90; RESP 16; TEMP 36.5; O2SAT 99
--- OUTSIDE RECORDS SUMMARY | 2025-01-25 16:03 | XMS_ITS | Clinical Summary ---
Author Organization [facility] Address [address] [place] [address] Care Team Providers Care Multi Craft Maintenance Technician Name Role Phone Rahul West MD Primary Care Provi shahrzad Allergies Active Allergy Reactions Criticality Noted Date Comments Aspartame Doxycycline Photosensitivity High 09/24/2011 Iodinated Contrast Media Hives Medium 12/03/2015 Pollen Extracts Saccharin Rash Medium 09/24/2011 Medications carica papaya tablet Take 1 tablet by mouth as needed (indigestion) Active ascorbic acid/multivit-m in (EMERGEN-C ORAL) Take 1 tablet by mouth daily before breakfast Active calcium citrate/vitamin D3 (CITRACAL + D ORAL) Take 1 tablet by mouth daily before breakfast Active diphenhydrAMINE (BENADRYL) 12.5 mg chewable tabletIndicatio ns:Allergic Rhinitis Take 2 tablets (25 mg total) by mouth every 6 (six) hours as needed for allergies Active ibuprofen (ADVIL,MOTRIN) 200 mg tab/cap Take 1 tablet/capsule (200 mg total) by mouth every 6 (six) hours as needed for pain Active Active Problems Problem Noted Date Diagnosed Date 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 Patellar dislocation, right, initial encounter 0 10/07/2021 Chondromalacia of right patella 10/07/2021 Loose body of right knee 10/07/2021 Effusion of right knee 10/07/2021 Family history of colon cancer 01/26/2013 Overview (11/19/2016): Family history of colon cancer Adiposity 01/26/2013 Overview (11/21/2016): Obesity Anemia 01/26/2013 Overview (11/21/2016): Anemia Stress incontinence in female 09/14/2012 Overview (11/19/2016): Urinary, incontinence, stress female Asthma 09/14/2012 Overview (11/21/2016): Asthma Atopic rhinitis 09/14/2012 Overview (11/21/2016): Chronic allergic rhinitis Rosacea 09/14/2012 Overview (11/21/2016): Rosacea Irritable bowel syndrome 09/14/2012 Overview (11/21/2016): IBS (irritable bowel syndrome) Encounters Date Type Department Care Team Description 12/22/[address] [facility] Primary Care at [address] [phone] Jose Best MD from Last 3 Months Immunizations Immunization Administration Dates Next Due Influenza, Trivalent, Split, Preservative Free, Intradermal 05/17/2014,05/17/2013 Pneumococcal Polysaccharide PPV23 10/20/2014 Tdap 04/17/2011 Surgical History Surgery Date Site/Laterality Comments OTHER SURGICAL HISTORY 08/17/2010 - 08/16/2011 Stress incontinence: surgical. Urethral mesh in place. TONSILLECTOMY 08/17/2012 - 08/16/2013 Tonsillectomy URETHRAL DILATION 08/17/1986 - 08/16/1987 OVARIAN CYST REMOVAL 08/17/2011 - 08/16/2012 Ovarian cyst/mass: ovary: L/S cystectomy ULNAR NERVE REPAIR 08/17/2013 - 08/16/2014 Bilateral KNEE SURGERY KNEE ARTHROSCOPY Medical History Medical History Date Comments Hx Other Medical Ovarian cyst/ma ss Anemia no recent issues History of multiple allergies Al cristino Gastroesophageal reflux disease reports symptoms ~1-2x/month Irritable bowel syndrome Irritab le bowel disease Hx Other Medical Stress incontin ence Peptic ulcer 2010 Peptic ulcer dis ease Arthritis 07/02/2021 Asthma 08/17/2002 well controlled, last albuterol use >1mo ago Bulimia nervosa 06/17/2013 Motion sickness Delayed emergence from gener al anesthesia 2012 with ovarian cyst proce dure at [facility] in [place], [place]. Difficulty with desaturation while trying to extubate Anesthesia complication Family History Medical History Relation Name Comments Arthritis Father Ed [place] Cancer Father Ed Gu[place]ako Diabetes Father Ed Gu[place]ako Hypertension Father Ed [place] Hypertension; Obesity Father Ed [place]ako Osteoarthritis Father Ed [place] Osteoarthriti s; Alzheimer's disease Maternal Grandfather Stevenson Da Silva Cancer Maternal Grandfather Stevenson Avinash Arthritis Maternal Grandmother Chani Da Silva Blood Clot Maternal Grandmother Chani Da Silva Cancer Maternal Grandmother Chani Da Silva Diabetes Maternal Grandmother Chani Da Silva Anesthesia problems Mother Suze [place] Cancer Mother Suze [place] Clotting disorder Mother Suze [place] Colon cancer Mother Suze [place] Cancer -colon ; Cause of : Cancer -colon Miscarriages / Stillbirths Mother Suze [place] Obesity Mother Suze [place] PONV Mother Suze [place] Other Sister 2 Alive and well; Relation Name Status Comments Father [place] Maternal Grandfather Steevnson Da Silva Maternal Grandmother Chani Da Silva Mother Suze M[place]ica (Age 61) Sister 1 Alive Sister 2 Social History Tobacco Use Types Packs/Day Years Used Date Smoking Tobacco: Never Smokeless Tobacco: Never Alcohol Use Standard Drinks/Week Comments Yes 0 (1 standard drink = 0.6 oz pur e alcohol) AUDIT-C Answer Date Recorded Q1: How often do you have a drink containing alc ohol? 2-4 times a month 10/24/2021 Q2: How many drinks containi ng alcohol do you have on a typical day when you are drinking? 1 or 2 10/24/2021 Q3: How often do you have si x or more drinks on one occasion? 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 Not on file N ot on file Obstetrics History Last Filed Vital Signs Vital Sign Reading Time Taken Comments Blood Pressure 162/101 12/08/2022 3:21 PM CDT Pulse 103 12/08/2022 3:21 PM CDT Temperature 36.6 C (97.9 F) 11/01/2021 1:00 PM CDT Respiratory Rate 17 11/01/2021 1:00 PM CDT Oxygen Saturation 94% 11/01/2021 1:00 PM CDT Inhaled Oxygen Concentration - - Weight 117.3 kg (258 lb 8 oz) 12/08/2022 3:21 PM CDT Height 165.1 cm (5' 5) 12/08/2022 3:21 PM CDT Body Mass Index 43.02 12/08/2022 3:21 PM CDT Plan of Treatment Health Maintenance Due Date Last Done Comments Breast Cancer Screening-Mammogram 1981 Cervical Cancer Screening 1981 Depression Screening 1981 Hepatitis C Screening 1981 Varicella Vaccines (1 of 2 - 13+ 2-dose series) 1994 Hepatitis B Screening 1999 Regular Well Visit/Exam 18-64 1999 Pneumococcal vaccine <65 (2 of 2 - PCV) 10/21/2015 10/20/2014 DTaP/Tdap/Td Vaccine (2 - Td or Tdap) 04/17/2021 04/17/2011 Covid-19 Vaccine (3 - 2023-2 5 season) 2024 03/24/2021, 03/03/2021 Influenza Vaccine (Season Ended) 2025 05/17/2014, 05/17/2013 HPV Vaccines Aged Out No longer eligi ble based on patient's age to complete this topic Insurance [employer] [facility] HMO [facility] H[facility]/PPO Address: [address] [address] [place] [address] Care Teams Multi Craft Maintenance Technician Relationship Specialty Start Date End Date Rahul West MD PCP - General Gastroenterology 12/12/21
--- OUTSIDE RECORDS SUMMARY | 2025-01-25 16:03 | XMS_ITS | Referral Summary ---
Author Organization [facility] Address [address] [place] [address] Care Team Providers Care Transitional Studies Instructor Name Role Phone Rahul West MD Primary Care Provi [facility] Encounters Date Type Department Care Team Description 12/22/2024 Telephone [facility] Primary Care at [address] [place] [phone] Jose Best MD from Last 3 Months Allergies Active Allergy Reactions Criticality Noted Date [...] 09/14/2012 Overview (11/21/2016): IBS (irritable bowel syndrome) Immunizations Immunization Administration Dates Next Due Influenza, Trivalent, Split, Preservative Free, Intradermal 05/17/2014,05/17/2013 Pneumococcal Polysaccharide PPV23 10/20/2014 Tdap 04/17/2011 Social History Tobacco Use Types Packs/Day Years [...] on file Legal Sex Female 1:37 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
== END 2025-01-25 14:26 | disposition home or self-care (01) ==
PROVIDERS: Emergency Provider Nurse Practitioner Family
DX: J18.9 Pneumonia, unspecified organism (principal)
CPT/HCPCS: 71046; 99213; G0463

== ENCOUNTER 2025-04-12 07:20 | Outpatient (CLI) | payer OTHER, SELFPAY ==
[2025-04-12 08:15] LABS: Anion Gap 4 mmol/L (4-12); Blood Urea Nitrogen 10 mg/dL (7-17); Calcium 8.8 mg/dL (8.4-10.2); Carbon Dioxide 29 mmol/L (22-30); Chloride 104 mmol/L (98-107); Estimated Glomerular Filt Rate > 60; Glucose 126 mg/dL (65-110); Magnesium 2.0 mg/dL (1.6-2.3); Potassium 3.5 mmol/L (3.4-5.0); Sodium 137 mmol/L (137-145)
[2025-04-14 03:07] LABS: T4,Free (Direct) 1.11 ng/dL (0.82-1.77); TSH 6.270 uIU/mL (0.450-4.500); Thyroid Peroxidase (TPO)Ab YES YES; Thyroxine (T4) Free, D, S YES YES
== END 2025-04-12 07:21 | disposition home or self-care (01) ==
DX: E66.01 Morbid (severe) obesity due to excess calories (principal); E89.0 Postprocedural hypothyroidism
CPT/HCPCS: 36415; 80048; 82306; 82533; 83735; 84439; 84443; 84481; 86376

== ENCOUNTER 2025-06-08 10:46 | Outpatient (CLI) | payer OTHER, SELFPAY ==
--- OUTSIDE RECORDS SUMMARY | 2025-06-08 11:56 | XMS_ITS | Encounter Summary ---
Author Organization [facility] Address [address] [place] [address] Care Team Providers Care Consumer Analyst Name Role Phone Jose Best MD Primary Care Provider + Encounter Details Date Type Department Care Team (Late st Contact Info) Description 04/24/2025 Results Follow-Up [facility] Primary Care at [address] [place] [phone] Jose Best MD [address] [facility] [address] [place] [address] Albumin Creatinine Ratio, Urine Social History Tobacco Use Types Packs/Day Years [...] more drinks on one occasion? 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
--- OUTSIDE RECORDS SUMMARY | 2025-06-08 11:56 | XMS_ITS | Clinical Summary ---
Author Organization [facility] Address [address] [place] [address] Care Team Providers Care Computer Forensic Specialist Name Role Phone Jose Best MD Primary Care Provider + Allergies Active Allergy Reactions Criticality Noted Date Comments Aspartame Doxycycline Photosensitivity High 09/24/2011 Iodinated Contrast Media Hives Medium 12/03/2015 Pollen Extracts Saccharin Rash Medium 09/24/2011 Medications carica papaya tablet Take 1 tablet by mouth as needed (indigestion) Active diphenhydrAMIN E (BENADRYL) 12.5 mg chewable tabletIndicati ons:Allergic Rhinitis Take 2 tablets (25 mg total) by mouth every 6 (six) hours as needed for allergies Active ibuprofen (ADVIL,MOTRIN) 200 mg tab/cap Take 1 tablet/capsule (200 mg total) by mouth every 6 (six) hours as needed for pain Active amLODIPine (NORVASC) 5 mg tablet Take 1 tablet (5 mg total) by mouth daily 90 tablet 02/07/20 25 Active cyclobenzaprin e (FLEXERIL) 5 mg tabletIndicati ons:Muscle Spasm Take 1 tablet (5 mg total) by mouth 2 (two) times a day as needed for muscle spasms 60 tablet 02/07/20 25 Active ergocalciferol (VITAMIN D) 50,000 unit capsule Take 1 capsule (50,000 Units total) by mouth once a week 12 capsule 4 02/08/20 25 026 Active tirzepatide (Mounjaro) 2.5 mg/0.5 mL pen injector injection Inject 0.5 mL (2.5 mg total) under the skin every 7 days 2 mL 2 04/24/20 25 Active blood-glucose, waistband setter lockstitch,cont (FreeStyle Matt 3 [place]) miscIndication s:Type 2 diabetes mellitus without complication, without long-term current use of insulin (HCC) Use to assist in checking blood sugars daily 2 each 3 05/10/20 25 Active levothyroxine (SYNTHROID) 75 mcg tabletIndicati ons: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 Always on empty stomach, water only. Do not eat or drink anything for 45 minutes after taking medication. Avoid taking vitamins or supplements containing biotin which can affect medication absorption. 30 tablet 2 02/09/20 25 025 Discontinued blood-glucose, waistband setter lockstitch,cont (FreeStyle Matt 3 [place]) miscIndication s:Type 2 diabetes mellitus without complication, without long-term current use of insulin (HCC) Use to assist in checking blood sugars daily 1 each 03/22/20 25 025 Discontinued(R eorder) blood-glucose sensor (Dexcom G7 Sensor) deviceIndicati ons:Type 2 diabetes mellitus without complication, without long-term current use of insulin (HCC) Dexcom G7 sensor use for 10 days to monitor blood sugar. 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 Assessment & Plan (04/24/2025 5:42 PM CDT): Type 2 diabetes mellitus wit hout complication, without long-term current use of insulin 03/22/2025 Assessment & Plan (04/24/2025 5:42 PM CDT): Orders: Albumin Creatinine Ratio, Urine; Future Hx of partial thyroidectomy 02/06/2025 Assessment & Plan (04/24/2025 5:42 PM CDT): Assessment & Plan (02/06/2025 9:47 AM CDT): Orders: Thyroid Function Pettis; Future Body mass index 40.0-44.9, adult ([facility]) 02/06 Assessment & Plan (04/24/2025 5:42 PM CDT): Assessment & Plan (02/06/2025 9:47 AM CDT): Orders: Portable/Home Sleep Study; Future Mild tricuspid regurgitation by prior echocardio gram 02/06/2025 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 Patellar dislocation, right, initial encounter 0 10/07/2021 Chondromalacia of right patella 10/07/2021 Loose body of right knee 10/07/2021 Effusion of right knee 10/07/2021 Stress incontinence in female 09/14/2012 Overview (11/19/2016): Urinary, incontinence, stress female Assessment & Plan (02/06/2025 9:47 AM CDT): Asthma 09/14/2012 Overview (11/21/2016): Asthma Atopic rhinitis 09/14/2012 Overview (11/21/2016): Chronic allergic rhinitis Rosacea 09/14/2012 Overview (11/21/2016): Rosacea Irritable bowel syndrome 09/14/2012 Overview (11/21/2016): IBS (irritable bowel syndrome) Assessment & Plan (04/24/2025 5:42 PM CDT): Assessment & Plan (02/06/2025 9:47 AM CDT): Resolved Problems Problem Noted Date Diagnosed Date Resolved Date Severe obesity 02/06/2025 04/24/2025 Family history of colon cancer 01/26/2013 05/31/2025 Overview (11/19/2016): Family history of colon cancer Assessment & Plan (02/06/2025 9:47 AM CDT): Adiposity 01/26/2013 04/24/2025 Overview (11/21/2016): Obesity Anemia 01/26/2013 02/06/2025 Overview (11/21/2016): Anemia Assessment & Plan (02/06/2025 9:47 AM CDT): Orders: Iron profile w/ IBC; Future Ferritin; Future CBC with auto differential; Future Encounters Date Type Department Care Team Description 05/31/2025 Telephone [facility] Medical [facility] Primary Care at [address] [place] [phone] Jose Best MD 05/25/2025 Telephone [facility] [address] [place] [address] Teresa Valdes 04/24/2025 10:56 AM CDT - 04/24/2025 11:59 PM CDT Hospital Encounter [facility] - Outpatient Center at [address] [address] Type 2 diabetes mellitus without complication, without long-term current use of insulin (HCC) Discharge Disposition: Discharge to home or self care 04/24/2025 9:30 AM CDT Office Visit [facility] Medical [facility] Primary Care at [address] [place] [address] Jose Best MD Body mass index 40.0-44.9, adult (CMS/HCC) (HCC) (Primary Dx); Type 2 diabetes mellitus without complication, without long-term current use of insulin (HCC); Hypertension associated with diabetes (HCC); Hx of partial thyroidectomy; 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; Irritable bowel syndrome, unspecified type 04/24/2025 Results Follow-Up [facility] Primary Care at [address] [place] [address] Jose Best MD Albumin Creatinine Ratio, Urine 04/11/2025 Telephone [facility] Primary Care at [address] [place] [address] Jose Best MD from Last 3 [...] recent issues History of multiple allergies [facility] Gastroesophageal reflux disease reports symptoms ~1-2x/month Irritable bowel syndrome Irritab le bowel disease Hx Other Medical Stress incontin ence Peptic ulcer 2010 Peptic ulcer dis ease Arthritis 07/02/2021 Asthma 08/17/2002 well controlled, last albuterol use >1mo ago Bulimia nervosa 06/17/2013 Motion sickness Delayed emergence from gener al anesthesia 2011 with ovarian cyst proce durvalentino at [facility] in [facility] [place]. Difficulty with desaturation while trying to extubate Anesthesia complication Thyroid disease 04/17/2024 Family History Medical History Relation Name Comments Arthritis Father [place] Cancer Father Ed [place] Diabetes Father Ed [place] Hypertension Father Ed [place] Hypertension; Obesity Father Ed [place] Osteoarthritis Father Ed [place] Osteoarthriti s; Alzheimer's disease Maternal Grandfather Stevenson Da Silva Cancer Maternal Grandfather Stevenson Da Silva Arthritis Maternal Grandmother Chani Da Silva Blood [...] Status Comments Father [place] Maternal Grandfather [place] Da Silva Maternal Grandmother Chani Da Silva [...] on file Legal Sex Female 1:37 PM [employer]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[employer] Gender Identity Not on file Sexual Orientation Not on file 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 [employer] Not on file Not on file N ot on file Obstetrics History Last Filed Vital Signs Vital Sign Reading Time Taken Comments Blood Pressure 134/78 04/24/2025 9:21 AM CDT Pulse 83 04/24/2025 9:21 AM CDT Temperature 36.3 C (97.3 F) 04/24/2025 9:21 AM CDT Respiratory Rate 16 04/24/2025 9:21 AM CDT Oxygen Saturation 96% 04/24/2025 9:21 AM CDT Inhaled Oxygen Concentration - - Weight 112 kg (247 lb) 04/24/2025 9:21 AM CDT Height 165.1 cm (5' 5) 04/24/2025 9:21 AM CDT Body Mass Index 41.1 04/24/2025 9:21 AM CDT Plan of Treatment Health Maintenance Due Date Last Done Comments Breast Cancer Screening-Mammogram 1981 Cervical Cancer Screening 1981 Hepatitis C Screening 1981 Dilated Eye Exam 1981 Foot Exam 1981 Varicella Vaccines (1 of 2 - 13+ 2-dose series) 1994 Hepatitis B Screening 1999 HPV Vaccines (1 - 3-dose SCDM series) 2008 Pneumococcal vaccine <65 (2 of 2 - PCV) 10/21/2015 0 10/20/2014 DTaP/Tdap/Td Vaccine (2 - Td or Tdap) 04/17/202108/2010 Covid-19 Vaccine ( - season) 04/17/202503/2021, 03/03/2021 Influenza Vaccine (#1) 2025 05/17/2014, 2012 Hemoglobin A1C 08/08/2025 02/06/2025 Depression Screening 02/06/2026 02/06/2025 Lipid Panel 02/06/2026 02/06/2025 Regular Well Visit/Exam 18-64 02/06/2026 02/06/2025 eGFR 02/06/2026 02/06/2025 Albumin Creatinine Ratio, Urine 04/24/2026 Procedures Procedure Name Priority Date/Time Associated Diagnosis Comments ALBUMIN CREATININE RATIO, URINE Routine 04/24/2025 10:56 AM CDT Type 2 diabetes mellitus without complication, without long-term current use of insulin (HCC) THYROID PEROXIDASE AND THYROGLOBULIN ANTIBODIES Routine 04/12/2025 COTININE, URINE Routine 04/12/2025 CORTISOL AM Routine 04/12/2025 TSH+FREE T4 Routine 04/12/2025 VITAMIN D 25 HYDROXY Routine 04/12/2025 COMPREHENSIVE METABOLIC PANEL Routine 04/12/2025 EGFR Routine 02/06/2025 9:26 AM CDT Annual physical exam HEMOGLOBIN A1C Routine 02/06/2025 9:26 AM CDT Annual physical exam LIPID PANEL Routine 02/06/2025 9:26 AM CDT Annual physical exam from Last 3 Months or Most Recently Relevant to Health Maintenance Results * (ABNORMAL) Albumin Creatinine Ratio, Urine (04/24/2025 10:56 AM CDT) Albumin Ur 46.0 mg/L Comment: Interpretive Data No reference range established. Current interpretive data was last revised 2018. Testing performed by: [address] [address] Creatinine Ur 60.2 mg/dL JOSE Comment: Interpretive Data No reference range established. Current interpretive data was last revised 2018. Testing performed by: [facility], [address] [place] [address]., [id number] Albumin Creatinine Ratio, Ur 76(H) 1 - 29 mg/g JOSE Comment:Testing performed by : [address] [address] Urine 04/24/2025 10:5 6 AM CDT 04/24/2025 4:06 PM CDT us Jose Best MD LAB URINE ORDERABLES Fin al Result JOSE [address] Department [place] [address] * (ABNORMAL) THYROID PEROXIDASE AND THYROGLOBULIN ANTIBODIES (04/12/2025) SCRIBED Thyroperoxidase ab 71(A) 0 - 34 IU/mL [facility] SCRIBED Thyroglobulin ab 0 >=0 IU/mL [facility] 04/12/2025 Result [facility] Historical Provider LAB BLOOD ORDERABLES Edit ed Result - Final [facility] * (ABNORMAL) TSH+Free T4 (04/12/2025) Scribed TSH 6.27(A) 0.45 - 4.50 mcU/mL [facility] SCRIBED T4, Free 1.11 0.82 - 1.77 mcg/dL [facility] SCRIBED TSH-ICMA 0 0 - 0 [facility] Blood 04/12/2025 Result [facility] Historical Provider LAB BLOOD ORDERABLES Ana l Result [facility] * Cortisol AM (04/12/2025) Blood 04/12/2025 Result [facility] Historical Provider LAB BLOOD ORDERABLES Ana l Result [facility] * Cotinine, urine (04/12/2025) SCRIBED Cotinine, Urine Negative [facility] Urine 04/12/2025 Result [facility] Historical Provider LAB URINE ORDERABLES Ana l Result [facility] * Vitamin D 25 hydroxy (04/12/2025) SCRIBED 25-OH Vitamin D 27.3 20 - 100 ng/mL [facility] Blood 04/12/2025 Result [facility] Historical Provider LAB BLOOD ORDERABLES Ana l Result [facility] * (ABNORMAL) Comprehensive metabolic panel (04/12/2025) SCRIBED Sodium 137 135 - 145 mmol/L [facility] SCRIBED Potassium 3.5 3.3 - 5.2 mmol/L [facility] SCRIBED Chloride 104 97 - 110 mmol/L [facility] SCRIBED Carbon Dioxide 29 22 - 32 mmol/L [facility] SCRIBED Anion Gap 4 2 - 15 mmol/L [facility] SCRIBED Urea Nitrogen (BUN) 10 6 - 25 mg/dL [facility] SCRIBED Creatinine 0.71 0.60 - 1.10 mg/dL [facility] SCRIBED Glucose 126(A) 70 - 110 mg/dL [facility] SCRIBED Calcium 8.8 8.5 - 10.3 mg/dL [facility] SCRIBED Bilirubin 0 mg/dL [facility] SCRIBED Plasma Protein 0 g/dL [facility] SCRIBED Albumin 0 g/dL [facility] SCRIBED Alkaline Phosphatase 0 Units/L [facility] SCRIBED Alanine Transaminase (ALT) 0 Units/L [facility] SCRIBED Aspartate Transaminase (AST) 0 Units/L [facility] Blood 04/12/2025 us Historical Provider LAB BLOOD ORDERABLES Ana l Result [facility] * eGFR (02/06/2025 9:26 AM CDT) eGFR >90 >=60 mL/min/1. 73 m2 Comment: Interpretive Data Reference Interval Normal >/= 90 mL/min/1.73m2 Mildly decreased* 60 - 89 mL/min/1.73m2 Mildly to moderately decreased 45 - 59 mL/min/1.73m2 Moderately to severely decreased 30 - 44 mL/min/1.73m2 Severely decreased 15 - 29 mL/min/1.73m2 Kidney Failure < 15 mL/min/1.73m2 *Relative to young adult level Estimated glomerular filtration rate is determined by the 2020 CKD-EPI equation recommended by the National Kidney Foundation (A Unifying Approach to GFR Estimation: Recommendations of the NKF-ASK Task Force on Reassessing the Inclusion of Race in Diagnosing Kidney Disease, JASN 2020). The CKD-EPI equation should not be used for patients with unstable renal function and has not been validated in children and those over 70. Current interpretive data was last reviewed 2021. Testing performed by: [address] [address] Blood 02/06/2025 9:26 AM CDT 02/06/2025 7:57 PM CDT Jose Best MD LAB BLOOD ORDERABLES Fin al Result Performing Organization Address [facility] de Phone Number JOSE [id number] [place] [address] * (ABNORMAL) Hemoglobin A1c (02/06/2025 9:26 AM CDT) Hgb A1C 7.3(H) 4.0 - 5.6 % Comment:Testing performed by : [address] [address] Estimated Average Glucose 163 mg/dL [facility] Comment: The ADA recommends reporting an estimated Average Glucose (eAG) with all Hemoglobin A1c results using the equation derived from a study of 507 normal and diabetic adults. Minority populations were underrepresented and children were not included. (Diabetes Care 31:9426-9427, 2008). The eAG is not equivalent to a fasting glucose. Testing performed by: [facility], [address] [place] [address]., [id number] Blood 02/06/2025 9:26 AM CDT 02/06/2025 7:50 PM CDT Jose Best MD LAB BLOOD ORDERABLES Fin al Result Performing Organization Address [facility] de Phone Number JOSE [address] [place] [address] * (ABNORMAL) Lipid panel (02/06/2025 9:26 AM CDT) Cholesterol 215(H) 30 - 199 mg/dL Comment: Interpretive Data Ages < or = 19 years Acceptable: <170 mg/dL Borderline high: 170-199 mg/dL High: >or= 200 mg/dL Ages > or = 20 years Desirable: <200 mg/dL Borderline high: 200-239 mg/dL High: >or= 240 mg/dL Literature References: 1. Expert Panel on Integrated Guidelines for Cardiovascular Health and Risk Reduction in Children and Adolescents. Pediatrics 2011;128:S213 2. NCEP Expert Panel. Circulation 2004;110:227 Current Interpretive Data was last revised on 2018. Testing performed by: [facility], [address] [place] [address]., [address] Triglycerides 126 <=149 mg/dL JO[facility] Comment: Interpretive Data Ages < or = 9 years Acceptable: <75 mg/dL Borderline high: 75-99 mg/dL High: >or= 100 mg/dL Ages 10 to 20 years Acceptable: <90 mg/dL Borderline high: 90-129 mg/dL High: >or= 130 mg/dL Ages > or = 20 years Desirable: <150 mg/dL Borderline high: 150-199 mg/dL High: 200-499 mg/dL Very high: >or= 499 mg/dL Literature References: 1. Expert Panel on Integrated Guidelines for Cardiovascular Health and Risk Reduction in Children and Adolescents. Pediatrics 2011;128:S213 2. NCEP Expert Panel. Circulation 2004;110:227 Current Interpretive Data was last revised on 2018. Testing performed by: [facility], [address] [place] [address]., [address] HDL 52 >=40 mg/dL JOSE Comment: Interpretive Data Ages < or = 19 years Acceptable: >45 mg/dL Borderline low: 40-45 mg/dL Low: <40 mg/dL Ages > or = 20 years Desirable: >or= 60 mg/dL Low: <40 mg/dL Literature References: 1. Expert Panel on Integrated Guidelines for Cardiovascular Health and Risk Reduction in Children and Adolescents. Pediatrics 2011;128:S213 2. NCEP Expert Panel. Circulation 2004;110:227 Current Interpretive Data was last revised on 2018. Testing performed by: [facility], [address] [place] [address]., [address] LDL, calculated 140(H) <=129 mg/dL JOSE Comment: Interpretive Data Ages < or = 19 years Acceptable: <110 mg/dL Borderline high: 110-129 mg/dL High: >or= 130 mg/dL Ages > or = 20 years Optimal: <100 mg/dL Near optimal: 100-129 mg/dL Borderline high: 130-159 mg/dL High: >160 mg/dL Calculated using the Edison LDL-C estimating equation. This equation was implemented on 2024. Prior to this date LDL-C was estimated using the Friedewald equation. Literature References: 1. Expert Panel on Integrated Guidelines for Cardiovascular Health and Risk Reduction in Children and Adolescents. Pediatrics 2011;128:S213 2. NCEP Expert Panel. Circulation 2004;110:227 3. Edison Vasquez et al. TEE Cardiol. 2020 December 15;5(5):540-548. doi: 10.1001/jamacardio.2020.0013 Current Interpretive Data was last revised on 2024. Testing performed by: [address] [address] Non-HDL Cholesterol 163 mg/dL [facility]WIN Comment: Interpretive Data Ages < or = 19 years Acceptable: <120 mg/dL Borderline high: 120-144 mg/dL High: >145 mg/dL Ages > or = 20 years When triglycerides are >200 mg/dL, Non-HDL cholesterol is a secondary target of therapy with treatment goals that are 30 mg/dL greater than the LDL cholesterol target. Literature References: 1. Expert Panel on Integrated Guidelines for Cardiovascular Health and Risk Reduction in Children and Adolescents. Pediatrics 2011;128:S213 2. NCEP Expert Panel. Circulation 2004;110:227 Current Interpretive Data was last revised on 2018. Testing performed by: [address] [address] Chol/HDL ratio 4 JOSE Comment:Testing performed by : [address] [address] Blood 02/06/2025 9:26 AM CDT 02/06/2025 7:50 PM CDT us Jose Best MD LAB BLOOD ORDERABLES Fin al Result JOSE [id number] [place] [address] Department [place] [address] from Last 3 Months or Most Recently Relevant to Health Maintenance [place] [address] [place] [address] [facility] HMO/PPO Address: [address] [address] [place] [address] Care Teams Computer Forensic Specialist Relationship Specialty Start Date End Date Jose Best MD [address] [address] [place] [address] PCP - General Family Medicine 02/06/25
--- OUTSIDE RECORDS SUMMARY | 2025-06-08 11:56 | XMS_ITS | Clinical Summary ---
Author Organization [facility] [employer] Address [address] 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 This disclosure is being madepursuant to the Care Everywhere program and may not contain all information available regarding this patient. Last updated 18.[facility] [employer] Allergies Active Allergy Reactions Criticality Noted Date Comments Doxycycline Photosensitivity High 09/24/2011 Contrast-Iodinated Agents Fo r Ct/Other Urticaria Medium 05/22/2011 Latex Itching,Skin Reactions 10/26/2009 Saccharin Rash Medium 09/24/2011 Medications * Be aware that medications may not be up to date on this document. Alwaysverify current medications with the patient. levonorgestrel -ethinyl estradiol (CAMRESE) 0.15-0.03 &0.01 MG tablet Take 1 tablet by mouth once daily 91 tablet 4 0 Active Additional Information Patient not taking.Reported on 10/14/2024 ondansetron, disintegrating , (Zofran ODT) 4 MG tablet Take 1 (one) tablet by mouth every 6 hours as needed for Nausea/Vomiting Allow tablet to dissolve on the tongue 30 tablet 4 Active dicyclomine (Bentyl) 20 MG tabletIndicati ons:Generalize d abdominal pain Take 1 (one) tablet by mouth 4 times daily as needed 120 tablet 3 4 Active Additional Information Patient not taking.Reason: Other, Reported on 09/08/2024 omeprazole (PriLOSEC) 20 MG capsule Take 1 (one) capsule by mouth daily before breakfast 90 capsule 3 4 Active diphenhydrAMIN E HCl 12.5 MG Take 25 mg by mouth every 6 hours as needed Active PAPAYA PO Take 1 tablet by mouth as needed Active Other Take 3 tablets by mouth once daily Beef Organ 300 mg Active niacinamide 500 MG tablet Take 1 (one) tablet by mouth once daily Active amLODIPine (Norvasc) 5 MG tablet Take 1 (one) tablet by mouth once daily Active oxyCODONE, immediate release, (Roxicodone) 5 MG tabletIndicati ons:Thyroid nodule Take 1 (one) tablet by mouth every 4 hours as needed for Pain 12 tablet 5 Active Additional Information Patient not taking.Reported on 10/14/2024 ibuprofen (Motrin) 600 MG tablet Take 1 (one) tablet by mouth every 6 hours as needed for Pain 30 tablet 5 Active Additional Information Patient not taking.Reported on 10/14/2024 acetaminophen (Tylenol) 325 MG tablet Take 2 (two) tablets by mouth every 6 hours as needed for Fever or Pain Maximum allowable Acetaminophen amount = 4 Grams (4000 mg) / 24 hours. 60 tablet 5 Active Additional Information Patient not taking.Reported on 10/14/2024 Active Problems Problem Noted Date Diagnosed Date Nausea and vomiting 10/29/2023 Heartburn 10/29/2023 Generalized abdominal pain 10/29/2023 Irritable bowel syndrome with diarrhea 2 Flatulence/gas pain/belching 02/25/2022 Family hx of colon cancer 02/25/2022 Screening for condition 05/23/2011 Overview (05/24/2020): 05/21/2020: PAP NILM, HPV neg --> 2022 Asthma 05/22/2011 Hives 05/22/2011 Resolved Problems Problem Noted Date Diagnosed Date Resolved Date Ovarian cyst, right 05/29/2011 05/16/20 14 Immunizations Immunization Administration Dates Next Due Cloudsnap primary monoval ent 12+ yr 0.3mL Purple cap 03/24/2021,03/03/2021 Influenza Intradermal 05/17/2014,05/17/2013 PNEUMOCOCCAL PPV VACCINE 10/20/2014 TDAP, HISTORIC VACCINE 04/17/2011 Family History Medical History Relation Name Comments Diabetes Maternal Grandmother Cancer - Breast Paternal Aunt Diabetes Paternal Grandmother Relation Name Status Comments Father Alive Maternal Grandmother Mother Paternal Aunt Paternal Grandmother Sister 1 Alive Sister 2 Alive Social History Tobacco Use Types Packs/Day Years Used Date Smoking Tobacco: Never Smokeless Tobacco: Never Alcohol Use Standard Drinks/Week Comments Yes 0 (1 standard drink = 0.6 oz pur e alcohol) social AUDIT-C Answer Date Recorded Q1: How often do you have a drink containing alc ohol? 2-4 times a month 09/08/2024 Average Number of Drinks Not on file 025 Frequency of Binge Drinking Not on file 08/18 Comments No Sex and Gender Information Value Date Recorded Sex Assigned at Not on file Legal Sex Female 12:57 PM [employer] Gender Identity Not on file Sexual Orientation Not on file Last Filed Vital Signs Vital Sign Reading Time Taken Comments Blood Pressure 178/118 10/14/2024 3:11 PM [employer] Pulse 80 10/14/2024 3:11 PM [employer] Temperature 36.4 C (97.6 F) 09/08/2024 3:52 PM [employer] Respiratory Rate 20 09/08/2024 4:45 PM [employer] Oxygen Saturation 93% 09/08/2024 4:45 PM [employer] Inhaled Oxygen Concentration - - Weight 112.4 kg (247 lb 12.8 oz) 10/14/2024 3:11 PM [employer] Height 165.1 cm (5' 5) 10/14/2024 3:11 PM [employer] Body Mass Index 41.24 10/14/2024 3:11 PM [employer] Plan of Treatment Health Maintenance Due Date Last Done Comments LIPID TESTING 1981 MAMMOGRAM 1981 HIV SCREENING 1996 HEPATITIS C SCREENING 09/07/1999 HEPATITIS B VACCINE (1 of 3 - 19+ 3-dose series) 2000 HPV VACCINE (1 - 3-dose SCDM series) 2008 PNEUMOCOCCAL VACCINE (2 of 2 - PCV) 10/21/2015 10/20/2014 DTAP/TDAP/TD VACCINES (2 - T d or Tdap) 04/17/2021 04/17/2011 SCREENING FOR DIABETES 05/17/2024 DEPRESSION SCREENING 08/17/2024 COVID-19 VACCINE (3 - 2024-2 6 season) 2025 03/24/2021, 03/03/2021 INFLUENZA VACCINE (#1) 2025 4, 05/17/2013 PAP with HPV 05/21/2025 05/21/2020 ZOSTER VACCINE (1 of 2) 2031 HIB VACCINE Aged Out No longer eligi ble based on patient's age to complete this topic MENINGOCOCCAL (Group B) VACCINE SHARED DECISION-MAKING Aged Out No longer eligible based on patient's age to complete this topic MENINGOCOCCAL GROUPS A/C/Y/W VACCINE Aged Out No longer eligible b ased on patient's age to complete this topic Procedures Procedure Name Priority Date/Time Associated Diagnosis Comments PAP IG LB+HPV APTIMA Routine 05/21/2020 10:45 AM CDT Well female exam with routine gynecological exam from Last 3 Months or Most Recently Relevant to Health Maintenance Results * PAP IG LB+HPV APTIMA (05/21/2020 10:45 AM CDT) Diagnosis [facility] ACCOUNT BILL Comment:NEGATIVE FOR INTRAEP ITHELIAL LESION OR MALIGNANCY. Specimen Adequacy [facility] ACCOUNT BILL Comment: Satisfactory for evaluation. Endocervical and/or squamous metaplastic cells (endocervical component) are present. Clinician Provided ICD10 [facility] ACCOUNT BILL Comment:Z01.419 Performed by [facility] ACCOUNT BILL Comment:Sydnee Rodas Cytot echnologist (ASCP) Comment . [facility] ACCOUNT BILL Note [facility] ACCOUNT BILL Comment: The Pap smear is a screening test designed to aid in the detection of premalignant and malignant conditions of the uterine cervix. It is not a diagnostic procedure and should not be used as the sole means of detecting cervical cancer. Both false-positive and false-negative reports do occur. . IGLBP CPT Code Automation [facility] ACCOUNT BILL Comment: This liquid based ThinPrep(R) pap test was screened with the use of an image guided system. Human papillomavirus Aptima Negative Negative [facility] ACCOUNT BILL Comment: This nucleic acid amplification test detects fourteen high-risk HPV types (16,18,31,33,35,39,45,51,52,56,58,59,66,68) without differentiation. PART OF UTERINE CERVIX / Unknown 05/21/2020 10:45 AM CDT 05/21/2020 Narrative [facility] ACCOUNT BILL - 05/23/2020 2:07 PM CDT Source.............Cervix No. of containers..01 ThinPrep Vial Resulting Agency Comment Lab Testing performed at: [facility] [address] [id number] [place] Philly Mooney MD LAB - PATHOLOGY/[place] MISTRY ORDERABLES Final Result [facility] ACCOUNT BILL [id number] [place] [address] from Last 3 Months or Most Recently Relevant to Health Maintenance Insurance [facility] Advance Directives * FULL RESUSCITATION (Latest Code Status on File) Date Activated Date Inactivated Comments 09/24/2011 8:15 AM 09/25/2011 4:42 AM * FULL RESUSCITATION Date Activated Date Inactivated Comments 09/24/2011 8:14 AM 09/24/2011 8:15 AM
[2025-06-09 07:09] LABS: TSH 3.450 uIU/mL (0.450-4.500)
== END 2025-06-08 10:47 | disposition home or self-care (01) ==
LOC: ANHLAB 10:49
DX: E06.3 Autoimmune thyroiditis (principal)
CPT/HCPCS: 84439; 84443; 84481; 86376

== ENCOUNTER 2025-07-20 14:44 | Outpatient (CLI) | payer OTHER, SELFPAY ==
[2025-07-20 15:09] LABS: Hematocrit 42.1 % (37.0-47.0); Hemoglobin 13.8 g/dL (12.0-15.0); Immature Granulocyte Percent A 0.2 % (0-0.5); Lymphocytes Absolute Auto 2.29 K/mm3 (0.9-3.2); Mean Corpuscular HGB Conc 32.8 g/dl (32-36); Mean Corpuscular Hemoglobin 28.3 pg (26-34); Mean Corpuscular Volume 86.3 fl (80-100); Nucleated Red Blood Cells Absolute Auto 0.000 K/mm3 (0.0-0.012); Nucleated Red Blood Cells Perc 0.0 % (0.0-0.2); Platelet Count Result 205 k/mm3 (150-375); Red Blood Count 4.88 M/mm3 (4.2-5.4); White Blood Count 8.3 K/mm3 (4.5-10.0)
[2025-07-21 07:09] LABS: TSH 3.320 uIU/mL (0.450-4.500)
== END 2025-07-20 14:45 | disposition home or self-care (01) ==
DX: R53.83 Other fatigue (principal); E06.3 Autoimmune thyroiditis
CPT/HCPCS: 36415; 82306; 84439; 84443; 84481; 85025; 86376